=== PATIENT | male | born 1990 | race Caucasian/White ===

== ENCOUNTER 2020-10-02 23:09 | Emergency (ER) | payer SELFPAY ==
[~2020-10-02] VITALS: Ht 162.6 cm; Wt 72.6 kg
[2020-10-02 23:33] VITALS: BP_SYST 130
--- NOTE | 2020-10-02 23:33 | NUR ---
Patient to [facility] for evaluation.
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
--- NOTE | 2020-10-03 00:09 | NUR ---
ER at bedside examining patient.
--- NOTE | 2020-10-03 00:41 | NUR ---
Patient and [facility] [place] given written and verbal discharge instructions and verbalizes understanding. ER MD discussed with patient the results and treatment provided. Patient in stable condition. ID arm band removed. No Rx given. Patient educated on pain management and to follow up with PMD. Pain Scale 0/10 Opportunity for questions provided and answered.
[2020-10-03 00:46] VITALS: BP_SYST 130
== END 2020-10-03 00:46 ==
LOC: SED 23:09
DX: Z04.3 Encounter for examination and observation following other accident (principal); V49.9XXA Car occupant (driver) (passenger) injured in unspecified traffic accident, initial encounter; Y93.89 Activity, other specified; Y92.413 State road as the place of occurrence of the external cause; Y99.8 Other external cause status
CPT/HCPCS: 99283